=== PATIENT | female | born 1945 | race Caucasian/White ===

== ENCOUNTER 2017-02-19 05:54 | Emergency (ER) | payer MEDICARE, BC ==
[2017-02-19 06:00] VITALS: BP 119/79; PULSE 80; RESP 18; O2SAT 98
[2017-02-19] MEDS ORDERED: SODIUM CHLOR 0.9% 1000 ML INJ 1,000 ML IV SCH (06:05)
--- NOTE | 2017-02-19 06:13 | PD ---
HPI Chief Complaint: allergic reaction Time Seen by Provider: 06:05 Travel History International Travel<30 days: No Contact w/Intl Traveler<30days: No Traveled to known affect area: No History of Present Illness HPI 71 year-old female presents to the emergency department for pruritic rash. Patient presents with multiple hives over the upper extremities and diffusely over the body. Patient denies any lip tongue or throat swelling. No stridor or hoarseness. Patient states symptoms began around 12 midnight. Patient states approximate 3 hours ago she was experiencing severe 8/10 chest pain that has now dissipated to 1/10 in intensity. Patient denies previous history of chest pain. Patient denies CAD, hypertension, dyslipidemia, diabetes, or tobacco use. Patient states she did have a remote history of asthma as a child and occasionally takes Advair. Patient denies any previous allergic reaction. Patient states she is visiting and used her son's soap for the first time last night around 11:30. Patient has noted swelling and pruritus of the hands and multiple urticaria onset since around midnight. Patient has taken no medications prior to arrival to the emergency department except x 1 dose Benadryl 25 mg. PFSH Past Medical History Narrative Medical Asthma; tubal ligation, reversal of tubal ligation; no tobacco use; nursing notes reviewed Social History Tobacco Use: No Allergies-Medications (Allergen,Severity, Reaction): Coded Allergies: No Known Allergies (Unverified , 02/19/17) Reported Meds & Prescriptions Reported Meds & Active Scripts Active Epipen 2-Rolo Inj (Epinephrine) 0.3 Mg/0.3 Ml Pfpen 0.3 Mg IM ONCE PRN Prednisone 20 Mg Tab 20 Mg PO DAILY 5 Days Reported Levothyroxine (Levothyroxine Sodium) 112 Mcg Tab 112 Mcg PO DAILY Advair Diskus Inh (Fluticasone-Salmeterol Inh) 100-50 Mcg/Blist Aer 1 Puff INH BID Rinse mouth after use. Rolaids (Calcium Carbonate-Mag Hydroxide) 550-110 Mg Chew 2 Tab CHEW QID PRN Aspirin 81 Mg Tabdr 325 Mg PO DAILY PRN Narrative Medication Advair Review of Systems Except as stated in HPI: all other systems reviewed are Neg General / Constitutional: No: Fever, Chills HENT: No: Congestion Cardiovascular: Positive: Chest Pain or Discomfort, No: Syncope Respiratory: No: Cough, Shortness of Breath, Wheezing Gastrointestinal: No: Nausea, Vomiting, Abdominal Pain Genitourinary: No: Dysuria, Decreased Urinary Output Musculoskeletal: No: Myalgias, Arthralgias Skin: Positive Rash, Positive Itching, Positive Hives Neurologic: No: Weakness, Dizziness, Syncope, Focal Abnormalities, Coordination Problem Psychiatric: No: Anxiety Endocrine: No: Heat Intolerance Hematologic/Lymphatic: No: Easy Bruising Physical Exam Narrative GENERAL: Well-developed well-nourished female in no acute distress no respiratory distress; no stridor or hoarseness; GCS 15 SKIN: Warm and dry. Diffuse urticaria; no vesicles no pustules no petechia no purpura HEAD: Normocephalic. EYES: No scleral icterus. No injection or drainage. ENT: No lip, tongue, or posterior pharyngeal edema; mucous membranes moist; airway is patent NECK: Supple, trachea midline. No JVD or lymphadenopathy. CARDIOVASCULAR: Regular rate and rhythm without murmurs, gallops, or rubs. RESPIRATORY: Breath sounds equal bilaterally. No accessory muscle use. GASTROINTESTINAL: Abdomen soft, non-tender, nondistended. MUSCULOSKELETAL: No cyanosis, or edema. BACK: Nontender without obvious deformity. No CVA tenderness. Data Data Last Documented VS Vital Signs Date Time Temp Pulse Resp B/P Pulse Ox O2 Delivery O2 Flow Rate FiO2 02/19/17 08:06 70 18 117/67 100 02/19/17 07:02 Room Air Orders Basic Metabolic Panel (Bmp) (02/19/17 06:05) Complete Blood Count With Diff (02/19/17 06:05) Ecg Monitoring (02/19/17 06:05) Iv Access Insert/Monitor (02/19/17 06:05) Oximetry (02/19/17 06:05) Diphenhydramine Inj (Benadryl Inj) (02/19/17 06:15) Methylprednisolone So Succ Inj (Solumedr (02/19/17 06:15) Famotidine Inj (Pepcid Inj) (02/19/17 06:15) Sodium Chlor 0.9% 1000 Ml Inj (Ns 1000 M (02/19/17 06:05) Sodium Chloride 0.9% Flush (Ns Flush) (02/19/17 06:15) Troponin I (02/19/17 06:05) Electrocardiogram (02/19/17 ) Diphenhydramine Inj (Benadryl Inj) (02/19/17 07:00) Diphenhydramine Inj (Benadryl Inj) (02/19/17 07:00) Epinephrine (1:1000) Inj (Adrenalin (1:1 (02/19/17 07:15) Labs Laboratory Tests Test 02/19/17 06:10 White Blood Count 10.6 TH/MM3 Red Blood Count 4.70 MIL/MM3 Hemoglobin 13.8 GM/DL Hematocrit 41.2 % Mean Corpuscular Volume 87.7 FL Mean Corpuscular Hemoglobin 29.4 PG Mean Corpuscular Hemoglobin 33.5 % Concent Red Cell Distribution Width 13.2 % Platelet Count 299 TH/MM3 Mean Platelet Volume 8.7 FL Neutrophils (%) (Auto) 75.0 % Lymphocytes (%) (Auto) 18.0 % Monocytes (%) (Auto) 5.5 % Eosinophils (%) (Auto) 1.1 % Basophils (%) (Auto) 0.4 % Neutrophils # (Auto) 8.0 TH/MM3 Lymphocytes # (Auto) 1.9 TH/MM3 Monocytes # (Auto) 0.6 TH/MM3 Eosinophils # (Auto) 0.1 TH/MM3 Basophils # (Auto) 0.0 TH/MM3 CBC Comment DIFF FINAL Differential Comment Sodium Level 141 MEQ/L Potassium Level 4.0 MEQ/L Chloride Level 107 MEQ/L Carbon Dioxide Level 25.9 MEQ/L Anion Gap 8 MEQ/L Blood Urea Nitrogen 15 MG/DL Creatinine 0.55 MG/DL Estimat Glomerular Filtration 110 ML/MIN Rate Random Glucose 102 MG/DL Calcium Level 8.9 MG/DL Troponin I LESS THAN 0.02 NG/ML [facility] Medical Decision Making Medical Screen Exam Complete: Yes Emergency Medical Condition: Yes Medical Record Reviewed: Yes Interpretation(s) EKG: Normal sinus rhythm rate [address] elevation or injury pattern change noted Troponin I: less than 0.02, not elevated Vital Signs Date Time Temp Pulse Resp B/P Pulse Ox O2 Delivery O2 Flow Rate FiO2 02/19/17 06:00 80 18 119/79 98 Room Air 02/19/17 06:00 Room Air CBC & BMP Diagram 02/19/17 06:10 Differential Diagnosis Acute allergic reaction, idiopathic urticaria, anaphylaxis, angioedema, chest pain, atypical chest pain, ACS, DE Narrative Course Patient placed on front desk monitor IV access obtained specimens collected and sent for resulting EKG ordered; patient administered Solu-Medrol 125 mg IV, Pepcid 20 mg IV, and Benadryl 25 mg IV; in view of patient's complaint of chest pain that she had considered severe 8/10 intensity and is now 1/10 intensity will defer epinephrine at this time and see if she responds briskly to aforementioned medications however should she have any change in her blood pressure or worsening of urticaria or develop angioedema will proceed with epinephrine at that time. At 06:33 AM patient is clinically improving; urticarial changes are decreasing; patient continues to have swelling of the hands; patient denies any chest discomfort; pain or discomfort is 0/10 in intensity--- no referred neck jaw back shoulder arm or abdominal pain no nausea no vomiting no sweats and no shortness of breath. @ 06:40 troponin I is less than 0.02, not elevated; medications have been administered for 30 minutes; patient reassessed and urticaria --- patient administered additional dose of Benadryl 25 mg iv @ 0705 no further improvement of symptoms or swelling of hands --will proceed with Epinephrine 1:1000 0.3mg IM administered x 1 dose. @ 07:15 patient feels well ---monitoring post medication administration; VSS Diagnosis Primary Impression: Acute allergic reaction Qualified Code: T78.40XA - Acute allergic reaction, initial encounter Referrals: Primary Care Physician call for appointment Patient Instructions: General Instructions Additional Instructions: Increase fluid hydration Do not use/reuse the new bar soap again; identify a possible new foods that may have precipitated the reaction and avoid these foods in the future Takes Zantac 150 twice daily for 7 days Take Zyrtec 10 mg daily for 7 days OR continue Benadryl 25-50 mg as often as every 4-6 hours as needed for hives/allergic reaction Avoid overheating or consuming hot beverages or foods 24 hours Return to the emergency department for any concerns or change in condition; should you have an recurrent allergic reaction/hives reaction and need to use sure prescribed EpiPen administer medication as directed and then proceed to the nearest emergency department. Med/Other Pt SpecificInfo: Prescription(s) given Scripts Epinephrine Inj (Epipen 2-Rolo Inj)0.3 Mg/0.3 Ml Pfpen0.3 Mg IM ONCE PRN ( ALLERGIC REACTION) #1 PACK Ref 0 Prov:Becky Pierre MD 02/19/17 Prednisone 20 Mg Tab20 Mg PO DAILY 5 Days Ref 0 Prov:Becky Pierre MD 02/19/17 Becky Pierre MD February 19, 2017 06:13
[2017-02-19] MEDS ORDERED: diphenhydrAMINE HCL 50 MG/ML VIAL IVP ONE (06:15)
[2017-02-19] MEDS ORDERED: FAMOTIDINE 20 MG/2 ML VIAL IV PUSH ONE (06:15)
[2017-02-19] MEDS ORDERED: SODIUM CHLORIDE 0.9% FLUSH 10 ML FLUSH IV FLUSH PRN (06:15)
[2017-02-19] MEDS ORDERED: methylPREDNISolone SOD SUCC 125 MG/2 ML VIAL IVP ONE (06:15)
[2017-02-19 06:18] LABS: BASOPHIL % 0.4 % (0.0-2.0); EOSINOPHIL # 0.1 TH/MM3 (0-0.4); EOSINOPHIL % 1.1 % (0.0-4.0); HEMATOCRIT 41.2 % (35.0-46.0); HEMO FLAGS DIFF FINAL; LYMPHOCYTE # 1.9 TH/MM3 (1.0-4.8); MEAN CELL VOLUME 87.7 FL (80.0-100.0); MEAN CORPUSCULAR HEMOGLOBIN 29.4 PG (27.0-34.0); MEAN CORPUSCULAR HGB CONC 33.5 % (32.0-36.0); MONO % 5.5 % (0.0-8.0); PLATELET COUNT 299 TH/MM3 (150-450); RED CELL DISTRIBUTION WIDTH 13.2 % (11.6-17.2); WHITE BLOOD COUNT 10.6 TH/MM3 (4.0-11.0)
[2017-02-19] MEDS ORDERED: LEVO112T2 PO (06:23)
[2017-02-19] MEDS ORDERED: ASPI1TAB69 PO (06:23)
[2017-02-19] MEDS ORDERED: ADVA100A INH (06:23)
[2017-02-19] MEDS ORDERED: CALC1CHW35 CHEW (06:23)
[2017-02-19 06:25] LABS: CHLORIDE 107 MEQ/L (98-107); SODIUM (NA) 141 MEQ/L (136-145)
[2017-02-19 06:28] LABS: ANION GAP 8 MEQ/L (5-15); BICARBONATE 25.9 MEQ/L (21.0-32.0); BLOOD UREA NITROGEN 15 MG/DL (7-18)
[2017-02-19 06:31] LABS: GLOMERULAR FILTRATION RATE 110 ML/MIN (>89)
[2017-02-19] MEDS ORDERED: PRED20 PO (06:49)
[2017-02-19] MEDS ORDERED: EPIP0.3I IM (06:52)
[2017-02-19] MEDS ORDERED: diphenhydrAMINE HCL 50 MG/ML VIAL IV PUSH ONE ×2 (07:00)
[2017-02-19 07:02] VITALS: BP 101/67; PULSE 70; RESP 18; O2SAT 100
[2017-02-19] MEDS ORDERED: EPINEPHrine HCL (1:1000) 1 MG/ML VIAL IM ONE (07:15)
[2017-02-19 08:06] VITALS: BP 117/67
--- NOTE | 2017-02-19 09:47 | EKG ---
Date Performed: 02/19/2017 Time Performed: 06:12:30 PTAGE: 71 years EKG: Sinus rhythm Normal ECG NO PREVIOUS TRACING DOCTOR: Steffanie Campos Interpretating Date/Time 02/19/2017 09:45:07
== END 2017-02-19 08:13 | disposition home or self-care (01) ==
LOC: PHED 05:54
DX: R21 Rash and other nonspecific skin eruption (principal); Z79.82 Long term (current) use of aspirin; T49.2X5A Adverse effect of local astringents and local detergents, initial encounter; Y92.9 Unspecified place or not applicable
CPT/HCPCS: 80048; 84484; 85025; 93005; 96361; 96372; 96374; 96375; 96376; 99283; J0171; J1200; J2930; J7030